=== PATIENT | female | born 1965 | race Caucasian/White ===

== ENCOUNTER 2017-07-12 05:17 | Day surgery (SDC) | payer OTHER ==
[~2017-07-12 05:17] MED LIST: LOTREL 5-20 MG1 CAP PO; TOPROL XL200 MG PO
[2017-07-12] MEDS ORDERED: NAPROXEN SODIU550 M1 PO (08:40)
== END 2017-07-12 09:50 | disposition home or self-care (01) ==
LOC: CIR.AMB 05:17
DX: N84.0 Polyp of corpus uteri (principal)